=== PATIENT | female | born 1990 | race Caucasian/White ===

== ENCOUNTER 2019-04-16 10:51 | Inpatient (IN) ==
[~2019-04-16 10:51] MED LIST: *HR* Nalbuphine 10 MG/ML AMPUL IVP PRN; Famotidine 20 MG/2 ML VIAL IVP PRN; Lidocaine 1% 20 ML MDV INFILT PRN; Metoclopramide 10 MG/2 ML VIAL IVP PRN; Naloxone 0.4 MG/ML INJ IVP PRN; Ondansetron 4 MG/2 ML VIAL IVP PRN; Penicillin G Potassium 5,000,000 UNIT in 0.9 % Sodium Chloride Mini Bag 100 ML IVPB ONE
[2019-04-16] MEDS ORDERED: Ringers Solution, Lactated 1,000 ML IVC SCH (11:00)
--- NOTE | 2019-04-16 11:00 | OB/GYN History & Physical ---
Date of Encounter: 04/16/19 Time of Encounter: 10:53 Assessment and Plan (1) 39 weeks gestation of Current visit: Yes Status: Acute (2) PROM (premature rupture of membranes) Current visit: Yes Status: Acute Admit to L&D for observation of labor Expectant management Labs-CBC and type and screen CEFM Pain management plan is undecided Next status evaluation [address] Jackson is the OB on-call and is available as needed Qualifiers: PROM onset of labor timing: unspecified duration between rupture of membranes and onset of labor PROM gestational age: full term Qualified Code(s): O42.92 - Full-term premature rupture of membranes, unspecified as to length of time between rupture and onset of labor (3) GBS (group B Streptococcus carrier), +RV culture, currently Current visit: Yes Status: Acute Penicillin prophylaxis per protocol (4) Type O blood, Rh positive Current visit: Yes Status: Acute Cord blood to be collected at delivery (5) Intrauterine Current visit: Yes Status: Acute History of Present Illness Chief complaint: PROM HPI: Ms. Vallejo is a 28 year old female at 39 weeks 0 days gestation with an estimated date of of 04/23/19 dated by LMP. She presents with complaint of leakage of fluid since 0 9:15 this morning. She reports she was bending over and felt a large gush, then when she went to the bathroom she felt a "plop". She reports contractions here and there but nothing regular. She has been followed by Dr. Akhtar throughout her . Her has been uncomplicated. records are available electronically and have been reviewed. Labs: O+ GBS+ Hep B- Hep C- HIV- GC/CL- Rubella equivocal Varicella immune Past Med Surg Social Fam HX - Past Medical History Medical history: no medical history Psychiatric history: no psych history - Past Surgical History Surgical History: no surgical history - Social History Smoking Status: Never smoker Smokeless Tobacco Status: No Alcohol use: none Drug use: none - Family History Mother Living Status: Hx Family Cancer: Yes (breast) Obstetrical History - Pregnancies : 1 Para: 0 Term: 0 : 0 Ab's: 0 Livin Medications and Allergies Advil Cold & Sinus Caplet 06/17/15 [History] Amoxicillin 875 mg PO BID #20 tablet 06/17/15 [Rx] Benzonatate [Tessalon] 100 mg PO TID #30 capsule 06/17/15 [Rx] Loratadine/Pseudophed (12 HR) [Claritin D (12HR)] 1 each PO DAILY #10 tablet 06/17/15 [Rx] Mucinex 06/17/15 [History] Allergy/AdvReac Type Severity Reaction Status Date / Time No Known Allergies Allergy Verified 04/16/19 10:36 Review of System OB All systems PM: reviewed and no additional remarkable complaints except as stated Exam - Constitutional Constitutional: well developed, well nourished, no acute distress, average body habitus - HEENT HEENT: PERRL, Normocephaly, Mucus Membranes Moist - Neck Neck exam: full ROM - Lungs Respiratory exam: CTAB - Cardiovascular Cardiovascular exam: RRR, +S1, +S2 - Breasts Breast: bilateral: normal - Abdomen Abdomen: Present: bowel sounds normal, gravid, non tender - Extremities Extremities exam: full ROM, normal capillary refill, normal inspection, radial pulses palpable and symmetrical - Vulva Vulva: bilateral: normal - Vagina Vagina: Present: normal moisture - Cervix Dilation: 1 Effacement: 90 Station: -1 - Uterus Uterus exam: Present: normal size, normal contour - Adnexa Adnexa: bilateral: normal - Anus/Rectum Anus/Rectum: Present: normal perianal skin Results All other labs normal. - VTE Reasons for not Prescribing Prophylaxis: Treatment not Indicated - Low risk for VTE
[2019-04-16 11:56] LABS: Amphetamine Screen,Urine Negative ng/mL (Cutoff=1000); Barbiturate Screen,Urine Negative ng/mL (Cutoff=200); Benzodiazepines Screen,Urine Negative ng/mL (Cutoff=200); Cannabinoid Screen,Urine Negative ng/mL (Cutoff = 50); Cocaine Screen,Urine Negative ng/mL (Cutoff= 300); Opiate Screen,Urine Negative ng/mL (Cutoff=300); Phencyclidine Screen,Urine Negative ng/mL (Cutoff=25)
[2019-04-16 11:57] LABS: Hematocrit 38.5 % (35.3-44.9); Hemoglobin 12.5 g/dL (11.5-15.4); Immature Granulocytes % 1.3 % (0-4); Lymphocytes % 10.7 %; Mean Corpuscular HGB Conc 32.5 g/dL (31.6-35.5); Mean Corpuscular Hemoglobin 29.6 pg (28.0-33.3); Mean Corpuscular Volume 91.2 fL (83.0-100.0); Mean Platelet Volume 12.7 fL (9.4-12.4); Monocytes % 4.5 %; Platelet Count 130 K/mcL (140-400); Red Blood Count 4.22 M/mcL (3.82-4.97); Red Cell Distribution Width 13.8 % (11.5-14.5); Segmented Neutrophils % 83.2 %; White Blood Count 10.1 K/mcL (4.3-11.1)
[2019-04-16 11:58] LABS: Basophils % 0.1 %; Eosinophils % 0.2 %; Lymphocytes # 1.1 K/mcL (0.6-4.6); Monocytes # 0.5 K/mcL (0.0-1.3); Neutrophils # 8.4 K/mcL (1.6-8.9)
--- NOTE | 2019-04-16 15:41 | OB Labor Progress Note ---
Date of Encounter: 04/16/19 Time of Encounter: 15:39 Labor Progress Note - Subjective Subjective: Pt reports few contractions that are manageable. - Cervix Cervix: 2/90/-1 - Heart Tones Heart Tones: IA Baseline 140's - [place]: Contractions every 7-10 minutes and palpate mild - Interventions Interventions: SVE - Plan Physician notified: No Plan: Continue expectant management Encourage movement Frequent position changes Continue GBS prophylaxis Anticipate vaginal delivery
[2019-04-16] MEDS: Penicillin G Potassium 2,500,000 UNIT in 0.9 % Sodium Chloride 100 ML IVPB SCH ×3 (15:48→23:52)
--- NOTE | 2019-04-16 19:32 | Anesthesia Evaluation PreOp ---
Date of Encounter: 04/16/19 Time of Encounter: 19:17 - Past History Planned Operation: labor epidural Cardiac History: Denies any Significant Hx Pulmonary History: Denies Any Significant HX CATALYST OPERATOR History: Denies Any Significant HX Other Medical History: Other (thrombocytopenia, PLTs 130,000.) Anesthesia History: No Prior Anesthetic Complications, Past Anesthesia (wisdom teeth extracted, no problems, no other anesthetics. No FHAP.) : Yes Alcohol Use: none Drug use: none Medications and Allergies Ferrous Sulfate [Iron] 325 mg PO DAILY 04/16/19 [History] Pnv95/Ferrous Fumarate/FA [ Vitamin Tablet] 1 tab PO DAILY 04/16/19 [History] Allergy/AdvReac Type Severity Reaction Status Date / Time No Known Allergies Allergy Verified 04/16/19 10:36 - Meds/Allergy Pre-op Review Medications Reviewed: Yes Allergies Reviewed: Yes Beta Blockers on Current Med List: No Anesthesia Results - Labs 04/16/19 10:52 Anesthesia Exam 130/74, 72, 16. FHTs 130s. Height: 5'2" Weight: 74kg NPO (# of Hours): >8 Pain Scale: 4 Pain Scale Used: Numeric (1 - 10) - HEENT Pupil (Motor): Pupils equal Mallampati: II Teeth: Normal Oral Opening: Greater than 3 - CATALYST OPERATOR LOC: Oriented CATALYST OPERATOR Motor: Normal RUE, Normal LUE, Normal RLE, Normal LLE, Normal Face CATALYST OPERATOR Sensory: Normal: RUE, LUE, RLE, LLE, Face - Cardiac Rhythm: Regular - Pulmonary Breath Sounds: bilateral Clear Respiratory Effort: Symmetrical Anesthesia Assess/Plan ASA Score: 2 Level of consciousness: Cooperative, Oriented, Tranquil Anesthetic Plan: Epidural Monitoring Plan: Standard Monitors
[2019-04-16] MEDS ORDERED: Epidural Premix (fent/bupiv) 110 ML EP SCH (19:45)
--- NOTE | 2019-04-16 19:51 | OB Labor Progress Note ---
Date of Encounter: 04/16/19 Time of Encounter: 18:40 Labor Progress Note - Subjective Subjective: Pt reports increasing discomfort with contractions - Cervix Cervix: 3/100/-1 - Heart Tones Heart Tones: Baseline 120 Accelerations present Moderate variability No decelerations FHR Category I - [place]: Contractions every 4-5 minutes and palpate moderate - Interventions Interventions: SVE Frequent position changes - Plan Physician notified: No Plan: Continue expectant management Frequent position changes IA ok Anticipate
[2019-04-16] MEDS ORDERED: Oxytocin 20 units/ LR 1000 mL 20 UNIT/1,000 ML BAG IVC SCH (21:30)
[2019-04-17] MEDS ORDERED: *HR* FentaNYL (PF) 100 MCG/2 ML VIAL ONE (00:07)
[2019-04-17] MEDS ORDERED: Bupivacaine-MPF 0.25% 10 ML VIAL ONE (00:07)
--- NOTE | 2019-04-17 01:05 | Anesthesia Procedures ---
Date of Encounter: 04/17/19 Time of Encounter: 00:15 Procedures: Anesthesia - Epidural/Spinal Patient ID/Chart reviewed: Yes Patient examined: Yes OB Eval: Gestational age: 39 OB Eval: : 1 OB Eval: Hx Para: 0 OB Eval: Dilated at (cm): 6 OB Eval: Contractions: Non-stressed pattern Consent Obtained: Yes Supplemental Oxygen: None/Room Air Site Prep: Aseptic Technique, Sterile prep and drape, 0.5% Chlorhexidine/Alcohol Patient position: upright Local Anesthetic: Lidocaine 1% Amount of Local Anesthetic used: 3 Touhy Needle Gauge: 18 Touhy Needle Depth (cm): 6 Catheter Depth at Skin (cm): 11 Test Dose (1.5% Lido + Epi): Volume given (mls): 3 Test Dose Result: Negative Loading Dose: 0.25% Marcaine (mls): 5 Loading Dose: Fentanyl (mcg): 100 Loading Dose Administered: Thru Catheter Infusion Med: 0.125% Bupivacaine w/ 2 mcg/ml Fentanyl Infusion Rate (mls/hr): [address]: Tegaderm, Tape Interspace Used: L3-L4 Loss of Resistance (TREASURE): Yes Blood: No CSF: No Paresthesia: No Vitals + FHT's: Vital Signs Time 0015 0034 0035 0040 0045 0050 BP 128/68 122/60 141/83 130/59 130/69 122/68 Pulse 67 85 80 82 71 71 FHTs 130 130 130 130 130 130
--- NOTE | 2019-04-17 02:16 | OB Labor Progress Note ---
Date of Encounter: 04/17/19 Time of Encounter: 02:10 Labor Progress Note - Subjective Subjective: Patient comfortable with epidural - Cervix Cervix: 7/100/0 - Heart Tones Heart Tones: Baseline 110 Moderate variability Accelerations present 15x15 No decelerations FHR Category I - [place]: CTX unreadable due to maternal position - Interventions Interventions: SVE IUPC placed - Plan Physician notified: No Plan: Continue active management Flip peanut ball side every 30 minutes Anticipate
[2019-04-17] MEDS: Penicillin G Potassium 2,500,000 UNIT in 0.9 % Sodium Chloride 100 ML IVPB SCH (04:03)
--- NOTE | 2019-04-17 09:19 | OB/GYN Procedure Note ---
Delivery - Delivery Date: 04/17/19 Provider: Guy Akhtar Intrapartum events: none Delivery induction: none Delivery augmentation: pitocin Delivery monitor: external FHT, internal uterine Anesthesia: epidural Quantitated Blood Loss: 400 - (s) Infant A Delivery Date: 04/17/19 Infant Delivery Time: 08:54 Presentation: vertex Position: OA Route of delivery: Gender: Male Viability: Viable Pounds: 7 Ounces: 5 Weight Gram: 3.335 kg at 1 minute: 8 at 5 mins: 9 Shoulder Dystocia: not encountered Placenta: spontaneous Cord: 3 umbilical vessels - Repair Episiotomy: midline Laceration Description: None - Complications Delivery complications: none Delivery comments: This patient had a long labor. She had difficulty with pushing. We were able to make progress using a drop she does not have the patient folic acid drops she. After long progression the patient was able to bring the baby to the introitus. This was only performed with the assistance of an episiotomy. Pat ient could not get the baby out of the introitus. We had maternal exhaustion. This helped aid with the delivery. With the infant's head on the perineum the rest of the was then delivered easily. cried immediately upon delivery. The cord was Cut after 1 minute. Cord blood was obtained. The placenta was then delivered spontaneously intact. There are no cervical, vaginal or periurethral lacerations noted. The episiotomy was repaired with 3-0 Vicryl suture in usual fashion. Patient delivered a male weight 7 lbs. 5 oz. with Apgars 81 minute and 9 at 5 minutes. I spent blood loss is 400 mL - Disposition Mom disposition: stable in LDR disposition: stable in LDR
[2019-04-17] MEDS ORDERED: Oxytocin 20 units/ LR 1000 mL 20 UNIT/1,000 ML BAG IVC SCH (12:02)
[2019-04-17] MEDS ORDERED: Measles/Mumps/Rubella Vacc 0.5 ML VIAL SQ PRN (12:02)
[2019-04-17] MEDS ORDERED: Acetaminophen 325 MG TABLET PO PRN (12:02)
[2019-04-17] MEDS: Ibuprofen 600 MG TABLET PO PRN (16:18)
[2019-04-17] MEDS ORDERED: Benzocaine/Menthol 56 GM AEROSOL SPRAY TP PRN (16:19)
[2019-04-18] MEDS: Ibuprofen 600 MG TABLET PO PRN ×2 (01:32→07:48)
[2019-04-18 07:24] LABS: Basophils % 0.2 %; Eosinophils # 0.1 K/mcL (0.0-0.6); Eosinophils % 0.5 %; Hematocrit 30.1 % (35.3-44.9); Immature Granulocytes % 1.3 % (0-4); Lymphocytes # 1.4 K/mcL (0.6-4.6); Lymphocytes % 12.3 %; Mean Corpuscular HGB Conc 32.2 g/dL (31.6-35.5); Mean Corpuscular Hemoglobin 29.8 pg (28.0-33.3); Mean Corpuscular Volume 92.6 fL (83.0-100.0); Mean Platelet Volume 12.1 fL (9.4-12.4); Monocytes # 0.6 K/mcL (0.0-1.3); Monocytes % 5.1 %; Neutrophils # 9.4 K/mcL (1.6-8.9); Platelet Count 113 K/mcL (140-400); Red Blood Count 3.25 M/mcL (3.82-4.97); Red Cell Distribution Width 14.2 % (11.5-14.5); Segmented Neutrophils % 80.6 %; White Blood Count 11.7 K/mcL (4.3-11.1)
[2019-04-18 07:28] LABS: Hemoglobin 9.7 g/dL (11.5-15.4)
[2019-04-18 08:00] VITALS: BP 119/75
[2019-04-18] MEDS ORDERED: Prenatal Vit/FA 1 EACH TABLET PO SCH (09:00)
--- NOTE | 2019-04-18 09:54 | Discharge Summary ---
Date of Encounter: 04/18/19 Time of Encounter: 09:52 - Discharge Diagnosis (1) Vaginal delivery Priority: Primary Status: Acute Comments: Continue routine care discharge home today follow up with Dr. Akhtar in 4-6 weeks (2) Episiotomy pain Priority: Secondary Status: Acute Comments: Discussed interventions Will continue colace Sitz baths prn ice pack to perineum (3) Breast feeding status of mother Priority: Secondary Status: Acute Comments: support prn (4) anemia Priority: Secondary Status: Acute Comments: continue ferrous sulfate - Discharge Medications Prescriptions: New Breast Pump [BREAST PUMP] 1 each .ROUTE AD #1 each Docusate [Colace] 100 mg PO BID #30 capsule Benzocaine/Menthol [place] [Dermoplast [place]] 1 appl TP QID PRN aerosol PRN Reason: See Comments Ibuprofen [Motrin] 600 mg PO Q6HR PRN #60 tablet PRN Reason: cramping Continued Pnv95/Ferrous Fumarate/FA [ Vitamin Tablet] 1 tab PO DAILY Ferrous Sulfate [Iron] 325 mg PO DAILY Home Medications: Ferrous Sulfate [Iron] 325 mg PO DAILY 04/16/19 [History] Pnv95/Ferrous Fumarate/FA [ Vitamin Tablet] 1 tab PO DAILY 04/16/19 [History] Benzocaine/Menthol [place] [Dermoplast [place]] 1 appl TP QID PRN aerosol 04/18/19 [Rx] Breast Pump [BREAST PUMP] 1 each .ROUTE AD #1 each 04/18/19 [Rx] Docusate [Colace] 100 mg PO BID #30 capsule 04/18/19 [Rx] Ibuprofen [Motrin] 600 mg PO Q6HR PRN #60 tablet 04/18/19 [Rx] Allergies/Adverse Reactions: Allergy/AdvReac Type Severity Reaction Status Date / Time No Known Allergies Allergy Verified 04/16/19 10:36 Data Procedures and tests throughout hospitalization: Laboratory Tests 04/16/19 04/16/19 04/18/19 10:51 10:52 07:01 WBC 10.1 11.7 H RBC 4.22 3.25 L Hgb 12.5 9.7 L D Hct 38.5 30.1 L MCV 91.2 92.6 MCH 29.6 29.8 MCHC 32.5 32.2 RDW 13.8 14.2 Plt Count 130 L 113 L MPV 12.7 H 12.1 Immature Gran % 1.3 1.3 Seg Neutrophils % 83.2 80.6 Lymphocytes % 10.7 12.3 Monocytes % 4.5 5.1 Eosinophils % 0.2 0.5 Basophils % 0.1 0.2 Neutrophils # 8.4 9.4 H Lymphocytes # 1.1 1.4 Monocytes # 0.5 0.6 Eosinophils # 0.0 0.1 Basophils # 0.0 0.0 Urine Opiates Screen Negative Ur Buprenorphine Scrn Negative Ur Barbiturates Screen Negative Ur Phencyclidine Scrn Negative Ur Amphetamines Screen Negative U Benzodiazepines Scrn Negative Urine Cocaine Screen Negative U Marijuana (THC) Screen Negative Ur Drug Screen Interp See Below Labs on day of discharge: Labs from last 24 hours 04/18/19 07:01 WBC 11.7 H RBC 3.25 L Hgb 9.7 L D Hct 30.1 L MCV 92.6 MCH 29.8 MCHC 32.2 RDW 14.2 Plt Count 113 L MPV 12.1 Immature Gran % 1.3 Seg Neutrophils % 80.6 Lymphocytes % 12.3 Monocytes % 5.1 Eosinophils % 0.5 Basophils % 0.2 Neutrophils # 9.4 H Lymphocytes # 1.4 Monocytes # 0.6 Eosinophils # 0.1 Basophils # 0.0 Date of admission: 04/16/19 10:51 Primary care physician: Anthony Chavez Consults: 04/17/19 12:02 Consult to Wood Tool Maker [CONS] Routine Comment: Vaginal delivery, consult needed Discharging clinician: Kaylen Parra Anticipated date of discharge: 04/18/19 - Patient Status Disposition: Home, Self-Care Condition: Good Functional capacity at discharge: independent ambulation - Discharge Instructions Follow Up With: Anthony Chavez [Primary Care Provider] - Guy Akhtar MD [Partnered Physician] - - Diet and Activity Activity: increase activity as tolerated Diet: regular diet Hospital Course Reason for admission: active labor Delivery: Episiotomy: midline Laceration: other (episiotomy) Other procedures: none complications: none Discharge diagnosis: IUP at term delivered [place] baby: male (breast feeding) Time Attestation: Total time spent providing and/or coordinating discharge services: Time Spent: Less than 30 minutes Exam - Constitutional Vitals: Temp Pulse Resp BP Pulse Ox 98.2 F 75 16 119/75 97 04/18/19 07:58 04/18/19 07:58 04/18/19 07:58 04/18/19 07:58 04/18/19 07:58 General appearance IM: A&O X 3, pleasant, answers questions appropriately - Respiratory Respiratory exam: Present: CTAB - Cardiovascular Cardiovascular exam IM: Present: RRR, +S1, +S2 - GI/Abdominal GI/Abdominal exam IM: normal bowel sounds - Uterine Tone: Firm Uterus Position: At Umbilicus, Midline - Extremities Exam Extremities exam IM: Present: full ROM, normal capillary refill, normal inspection - Neurological Exam Neurological exam: alert, oriented X3, reflexes normal
== END 2019-04-18 14:42 | disposition home or self-care (01) | DRG 807 ==
LOC: 1NENULAB → 1NENUOBS 04-17 11:56
PROVIDERS: ADMIT Advanced Practice Midwife; ATTEND Advanced Practice Midwife